=== PATIENT | male | born 1950 | race Caucasian/White ===

== ENCOUNTER 2020-07-07 07:28 | Day surgery (SDC) | payer BC ==
[~2020-07-07] VITALS: Ht 172.7 cm; Wt 78.9 kg
[2020-07-07] MEDS ORDERED: NONE PER PT (08:12)
[2020-07-07] MEDS ORDERED: LACTATED RINGERS 1,000 ML IV SCH (08:14)
[2020-07-07] MEDS ORDERED: CHLORHEXIDINE 15 ML UDC ONE (08:17)
[2020-07-07] MEDS ORDERED: CHLORHEXIDINE 15 ML UDC MM ONE (08:30)
[2020-07-07 08:47] VITALS: BP 158/91
[2020-07-07] MEDS ORDERED: ASPI81TA45 PO (08:47)
[2020-07-07] MEDS ORDERED: MIDAZOLAM 1 MG/ML, 2ML ONE (09:19)
[2020-07-07] MEDS ORDERED: FENTANYL PF 100 MCG/2ML ONE (09:19)
[2020-07-07] MEDS ORDERED: ACETAMINOPHEN 500 MG TABLET PO ONE (09:30)
[2020-07-07] MEDS ORDERED: BUPIVACAINE/PF 0.5% ONE (10:37)
[2020-07-07] MEDS ORDERED: ONDANSETRON 2MG/ML, 2ML ONE (11:03)
[2020-07-07] MEDS ORDERED: GLYCOPYRROLATE 0.2MG/1ML, 5ML ONE (11:03)
[2020-07-07] MEDS ORDERED: KETOROLAC 30 MG/1 ML ONE (11:03)
[2020-07-07] MEDS ORDERED: ROCURONIUM 10 MG/ML,10ML ONE (11:03)
[2020-07-07] MEDS ORDERED: NEOSTIGMINE 1 MG/ML, 10ML ONE (11:03)
[2020-07-07] MEDS ORDERED: DEXAMETHASONE 4 MG/ML, 1ML ONE (11:03)
[2020-07-07] MEDS ORDERED: CEFAZOLIN 1,000 MG ONE (11:03)
[2020-07-07] MEDS ORDERED: PROPOFOL 10 MG/ML, 20ML ONE (11:03)
[2020-07-07] MEDS ORDERED: DIAZEPAM 5 MG/ML, 2ML IVPush PRN (11:30)
[2020-07-07] MEDS ORDERED: OXYcodone 5 MG/5 ML ORAL.SOL UDC PO PRN (11:30)
[2020-07-07] MEDS ORDERED: PROMETHAZINE 25 MG/ML, 1ML IVPush PRN (11:30)
[2020-07-07] MEDS ORDERED: DIPHENHYDRAMINE 50 MG/ML, 1ML IVPush PRN (11:30)
[2020-07-07] MEDS ORDERED: ONDANSETRON 2MG/ML, 2ML IVPush PRN (11:30)
[2020-07-07] MEDS ORDERED: ACETAMINOPHEN 325 MG TABLET PO PRN (11:30)
[2020-07-07] MEDS ORDERED: HYDROmorphone 1 MG/ML, 1ML INJ IVPush PRN (11:30)
[2020-07-07] MEDS ORDERED: MEPERIDINE/PF 25MG/0.5ML IVPush PRN (11:30)
[2020-07-07] MEDS ORDERED: FENTANYL PF 100 MCG/2ML IV PRN (11:30)
== END 2020-07-07 14:05 | disposition home or self-care (01) ==
LOC: OUT 07:28
PROVIDERS: ATTEND Surgery
DX: K40.90 Unilateral inguinal hernia, without obstruction or gangrene, not specified as recurrent (principal); D17.6 Benign lipomatous neoplasm of spermatic cord; I48.91 Unspecified atrial fibrillation; Z79.899 Other long term (current) drug therapy; Z98.890 Other specified postprocedural states; Z72.89 Other problems related to lifestyle
CPT/HCPCS: 49650; 93005; C1781; J0690; J1100; J1885; J2250; J2405; J2704; J2710; J3010; J7120; S2900